=== PATIENT | male | born 1995 | race Caucasian/White ===

== ENCOUNTER 2017-04-23 11:56 | Emergency (ER) | payer OTHER ==
[2017-04-23 12:13] VITALS: BP 132/76; PULSE 74; TEMP 98.6; BMI 36.2
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
[2017-04-23] MEDS ORDERED: KETOROLAC TROMETHAMINE 60 MG/2 ML VIAL IM ONE (12:33)
[2017-04-23] MEDS ORDERED: KETOROLAC TROMETHAMINE 60 MG/2 ML VIAL ONE (13:23)
== END 2017-04-23 13:36 | disposition home or self-care (01) ==
LOC: FER 11:56
PROC: 3E0233Z Introduction of Anti-inflammatory into Muscle, Percutaneous Approach (ICD-10-PCS; principal; 2017-04-23)
DX: S76.011A Strain of muscle, fascia and tendon of right hip, initial encounter (principal); W23.1XXA Caught, crushed, jammed, or pinched between stationary objects, initial encounter; Y93.89 Activity, other specified; Y92.9 Unspecified place or not applicable
CPT/HCPCS: 99282-25

== ENCOUNTER 2020-03-29 19:53 | Emergency (ER) | payer OTHER ==
[2020-03-29 20:15] VITALS: BP 144/84; PULSE 85; TEMP 98.2; BMI 36.8
[2020-03-29] MEDS ORDERED: DIPHTH,PERTUSS(ACELL),TET 0.5 ML DISP.SYRIN IM ONE ×2 (21:22→21:27)
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
== END 2020-03-29 21:31 | disposition home or self-care (01) ==
LOC: FER 19:53
PROC: 3E0234Z Introduction of Serum, Toxoid and Vaccine into Muscle, Percutaneous Approach (ICD-10-PCS; principal; 2020-03-29)
DX: S02.2XXA Fracture of nasal bones, initial encounter for closed fracture (principal)
CPT/HCPCS: 70486-TC; 90715; 99284-25